=== PATIENT | female | born 1950 | race Caucasian/White ===

== ENCOUNTER 2021-04-29 12:13 | Emergency (ER) | payer MEDICARE, OTHER ==
[~2021-04-29] VITALS: Ht 162.6 cm; Wt 79.4 kg
[2021-04-29] MEDS ORDERED: CORTEF 20 MG TA20 MG PO (12:27)
[2021-04-29] MEDS ORDERED: FLONASE 0.05%50 MCG NARES (12:28)
[2021-04-29] MEDS ORDERED: PROTONIX40 M4 PO (12:28)
[2021-04-29] MEDS ORDERED: LEVO-T75 MCG PO (12:28)
[2021-04-29] MEDS ORDERED: QUESTRAN PACKET4 GM PO (12:28)
[2021-04-29] MEDS ORDERED: SPIRONOLACTONE25 MG PO (12:28)
[2021-04-29] MEDS ORDERED: PREMARIN0.45 MG PO (12:29)
[2021-04-29] MEDS ORDERED: VITAMIN D31250 MC1 PO (12:29)
[2021-04-29] MEDS ORDERED: MECLIZINE HCL25 M1 PO (12:31)
[2021-04-29] MEDS ORDERED: BIOTIN1000 MCG PO (12:31)
[2021-04-29] MEDS ORDERED: CULTURELLE KID1 EAC1 (12:32)
[2021-04-29 13:54] VITALS: BP 157/74
== END 2021-04-29 13:55 | disposition home or self-care (01) ==
LOC: M.ERS 12:13
DX: S61.213A Laceration without foreign body of left middle finger without damage to nail, initial encounter (principal); E03.9 Hypothyroidism, unspecified; Z96.651 Presence of right artificial knee joint; Z90.49 Acquired absence of other specified parts of digestive tract; Z90.710 Acquired absence of both cervix and uterus; W26.8XXA Contact with other sharp object(s), not elsewhere classified, initial encounter; Y93.89 Activity, other specified; Y92.89 Other specified places as the place of occurrence of the external cause; Y99.8 Other external cause status; Z88.1 Allergy status to other antibiotic agents; Z88.5 Allergy status to narcotic agent; Z88.8 Allergy status to other drugs, medicaments and biological substances